=== PATIENT | female | born 1935 | race Asian ===

== ENCOUNTER 2019-01-01 06:04 | Day surgery (SDC) | payer MEDICARE, OTHER ==
[~2019-01-01] VITALS: Ht 149.9 cm; Wt 46.4 kg
[~2019-01-01 06:04] MED LIST: ALEN70TA10 PO; ATEN50TA PO; FAMO20 PO; LORA10TA7 PO; MONT10TA21 PO; SIMV-260 PO; SODIUM CHLORIDE 0.9% 1,000 ML IV ONE
[2019-01-01] MEDS ORDERED: SODIUM CHLORIDE 0.9% 1,000 ML IV ONE (06:30)
[2019-01-01] MEDS ORDERED: MONT10TA21 PO (06:38)
[2019-01-01] MEDS ORDERED: LEVO50 PO (06:38)
[2019-01-01] MEDS ORDERED: OMEG-12 PO (06:38)
[2019-01-01] MEDS ORDERED: DICY10 PO (06:38)
[2019-01-01] MEDS ORDERED: LOSA25TA41 PO (06:38)
[2019-01-01] MEDS ORDERED: ESCI10TA PO (06:38)
[2019-01-01] MEDS ORDERED: CALC-1009 PO (06:38)
[2019-01-01] MEDS ORDERED: OMEP20 PO (06:38)
[2019-01-01] MEDS ORDERED: MIDAZOLAM HCL 2 MG/2 ML VIAL ONE (08:08)
[2019-01-01] MEDS ORDERED: FentaNYL CITRATE-PF 100 MCG/2 ML VIAL ONE (08:09)
[2019-01-01] MEDS ORDERED: MethylPREDNISolone SOD SUCC 125 MG/2 ML VIAL IVP ONE ×2 (09:00→09:15)
[2019-01-01] MEDS ORDERED: OXYGEN THERAPY IH SCH (20:00)
== END 2019-01-01 10:40 | disposition home or self-care (01) ==
LOC: SURGERY 06:04
PROVIDERS: ATTEND Internal Medicine Critical Care Medicine
DX: J38.4 Edema of larynx (principal); B37.0 Candidal stomatitis; E78.00 Pure hypercholesterolemia, unspecified; K21.9 Gastro-esophageal reflux disease without esophagitis; Z98.890 Other specified postprocedural states
CPT/HCPCS: 31623; 31624; 71045; 87015; 87070; 87077; 87101; 87186; 87205; 87206; 87220; 88108; 88312; J2250; J2930; J3010; J7030